=== PATIENT | female | born 1990 | race Two or more races ===

== ENCOUNTER 2017-12-17 09:59 | Day surgery (SDC) | payer OTHER ==
[~2017-12-17] VITALS: Ht 165.1 cm; Wt 59.0 kg
[~2017-12-17 09:59] MED LIST: ALDACTONE50 MG PO
[2017-12-17 10:44] VITALS: BP 118/64
[2017-12-17 17:33] VITALS: BP 122/70
[2017-12-17 18:25] VITALS: BP 102/59
[2017-12-17 19:30] VITALS: BP 100/58
== END 2017-12-17 19:45 | disposition home or self-care (01) ==
LOC: SDC 09:59
PROVIDERS: Podiatrist Foot & Ankle Surgery
DX: M21.6X2 Other acquired deformities of left foot (principal); M20.12 Hallux valgus (acquired), left foot
CPT/HCPCS: 73630; 76000; 81025; C1713; J0690; J1100; J1170; J2250; J2405; J2765; J3010; S0020